=== PATIENT | male | born 1955 | race Caucasian/White ===

== ENCOUNTER → 2022-02-24 | Outpatient (CLI) | payer MEDICARE ==
[~2022-02-24] MED LIST: COZAAR50 MG PO; NEXIUM40 MG PO; STOOL SOFTENER1 EACH PO; VITAMIN D250000 UNIT PO; ZANTAC150 MG PO
== END ==
LOC: KOH-I 12:56
DX: F17.210 Nicotine dependence, cigarettes, uncomplicated (principal); R91.1 Solitary pulmonary nodule
CPT/HCPCS: 71271

== ENCOUNTER → 2022-03-03 | Outpatient (CLI) | payer MEDICARE | LOC: HEART 5 11:23 | DX: J43.2 Centrilobular emphysema (principal); Z00.00 Encounter for general adult medical examination without abnormal findings | CPT/HCPCS: 94060; 94729 ==

== ENCOUNTER → 2022-03-16 | Outpatient (CLI) | payer MEDICARE | LOC: HEART 5 09:58 | DX: I27.20 Pulmonary hypertension, unspecified (principal); I35.8 Other nonrheumatic aortic valve disorders; I51.89 Other ill-defined heart diseases | CPT/HCPCS: 93306 ==

== ENCOUNTER → 2022-04-18 | Outpatient (CLI) | payer MEDICARE | LOC: HEART 5 07:15 | DX: R07.9 Chest pain, unspecified (principal); R06.02 Shortness of breath | CPT/HCPCS: 78452; A9502 ==